=== PATIENT | female | born 1995 | race Caucasian/White ===

== ENCOUNTER 2016-07-17 05:34 | Day surgery (SDC) | payer OTHER ==
[2016-07-17] VITALS (8 sets, daily range): BP systolic 98–117; BP diastolic 52–71; PULSE 67–80; RESP 14–21; O2SAT 96–99
[~2016-07-17] VITALS: Ht 157.5 cm; Wt 62.1 kg
[~2016-07-17 05:34] MED LIST: DOCO200C5 PO
[2016-07-17] MEDS ORDERED: Lidocaine PF 1% 30 mL Inj ONE (05:35)
[2016-07-17] MEDS ORDERED: Propofol 10,000 mCg/mL 20 mL Inj ONE (05:35)
[2016-07-17] MEDS ORDERED: Ondansetron 2 mg/mL 2 mL Inj ONE (05:35)
[2016-07-17] MEDS ORDERED: Dexamethasone 4 mg/mL Inj ONE (05:35)
[2016-07-17] MEDS: Lactated Ringer's 1,000 ML IV SCH ×3 (05:49→07:52)
[2016-07-17] MEDS ORDERED: CeFAZolin Inj 2 GM in IV Premix 1 EACH IV SCH (06:00)
[2016-07-17] MEDS ORDERED: Lidocaine 1%-Epi 1:100,000 20 mL Inj INFILTRATE ONE (07:05)
[2016-07-17] MEDS ORDERED: Bupivacaine-MPF 0.25% 30 mL Inj INFILTRATE ONE (07:07)
--- NOTE | 2016-07-17 07:19 | PCM.HPANE ---
Patient Data Date of Service: July 17, 2016 Surgeon Admitting Provider: Attending Provider:Ted Banerjee MD Primary Care Physician:Dinora Kirby Other Provider:Florence Maguire Anesthesia Reason for Visit Congenital Nevus Left Leg Ht/WT & BMI Height (Feet): 5 Height (Inches): 2 Weight (Kilograms): 62.1 Body Mass Index 25.00 Allergies Coded Allergies: No Known Allergies (Unverified , 11/17/15) Past Anesthesia History Anesthesia History: Denies:: Anesthesia Reactions Diabetes History Hx Diabetes?: No Medications Home Meds Incl Beta Nanette: No Reported Medications Docosahexanoic Acid ( Dha)200 Mg [id number] Mg PO DAILY 07/14/16 Discontinued Reported Medications [valtrex] No Conflict Check 11/17/15 Discontinued Scripts Ibuprofen 600 Mg [id number] Mg PO QID PRN For Pain #30 TABLET Ref 1 Prov:Gustabo Goodrich MD 11/20/15 Ibuprofen 800 Mg [id number] Mg PO Q6H PRN For Pain #30 TABLET Ref 1 Prov:Gustabo Goodrich MD 11/20/15 Ferrous Sulfate 325 Mg [id number] Mg PO DAILY 90 Days Ref 1 Prov:Gustabo Goodrich MD 11/20/15 Docusate Sodium (Colace)100 Mg [id number] Mg PO BID #30 CAPSULE Ref 1 Prov:Gustabo Goodrich MD 11/20/15 oxyCODONE-Acetaminophen 5-325 mg 1 Each Tablet1-2 Tab PO Q4H PRN For Pain #30 TABLET Prov:Gustabo Goodrich MD 11/20/15 History History of ENT Problems?: No HEENT History: Denies:: Abnormal Airway TMJ Denture Type: None Teeth Condition: Within Normal Limits Hx of Heart Problems?: Yes Cardiovascular History: Positive for:: Irregular Heartbeat (prior hx of tachycardia post exercise, neg w/u 2010) Denies:: AICD Chest Pain Heart Murmur Pacemaker Peripheral Vascular Hx of Respiratory Problem?: No Respiratory History: Denies:: Asthma Hx Neurologic Problems?: No Neurological History: Denies:: CVA Hx of GI Problems?: No Gastrointestinal History: Denies:: Gastroesphageal Reflux Hx of Problems?: No Female Hx: Denies:: Currently Problems with Breasts? Skin History: Positive for:: History Skin Disorders? 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) Hx Musculoskeletal Problems?: No Hx of Psycho/Social Problems?: No Hx Surgeries?: Yes (c section, wisdom teeth) Hx Any Other Health Problems?: No Other History: Denies:: Cancer Thyroid Disease Hx Diabetes: No Hx Alcohol Use: NoHx Substance Use: No Smoking Status: Never Smoker Stop/Bang S-Snoring: Do You Snore Loudly: No T-Tired: feel tired, fatigued: No O-Obsered: Observed not breath: No P-Blood Pressure: treated: No B- Body Mass Index > 35 kg/m2: No A- Age over 50: No N- Neck Large Circumference: No G- Gender Male: No DILCIA Total Score: 0 DILCIA Risk Assessment: Low Risk, <3 Yes Risk Assessment Category Category 1A: Patient has history of documented sleep apnea, and HAS NOT received any narcotic, sedative or anesthesia administration during this stay. Category 1B: Patient has history of documented sleep apnea, and HAS received any narcotic , sedative or anesthesia administration during this stay Category 2: Patient has SUSPECTED Obstructive Sleep Apnea, and HAS received any narcotic , sedative or anesthesia administration during this stay. Category 3: Patient has SUSPECTED Obstructive Sleep Apnea and HAS NOT received narcotic, sedative or anesthesia administration during this stay. Category 4: Outpatient in Procedural Areas with known sleep apnea or who screen positive for High Risk via the STOP/BANG questionnaire. Exam Exam Vital Signs Vital Signs Date Time Temp Pulse Resp B/P Pulse Ox O2 Delivery O2 Flow Rate FiO2 07/17/16 05:56 36.1 73 16 117/69 98 Room Air General Appearance: Alert, Oriented X3, Cooperative, No Acute Distress HEENT/AIRWAY: MP 2, Neck Movement (FROM TMD 3 FB) Lungs: Clear to Auscultation, Normal Air Movement Heart: Exam Unremarkable, Regular Rate/Rhythm, No Murmurs/Rubs/Gallops Meds/Labs/Diagnostics Admission Meds Current Medications Lactated Ringer's (Lr) 1,000 ml @ 120 mls/hr Q8H20M IV Last administered on t 05:49; Start 07/17/16 at 05:00; Stop 07/17/16 at 13:19 Lidocaine/ Epinephrine (Xylocaine 1%-Epinephrine 1:100,000 Inj) 20 ml STK-MED ONCE INFILTRATE Last administered on 07/17/16 07:05; Start 07/17/16 at 07:05; Stop 07/17/16 at 07:08; Status DC Bupivacaine HCl (Sensorcaine-MPF 0.25% Inj) 30 ml STK-MED ONCE INFILTRATE Last administered on 07/17/16 07:07; Start 07/17/16 at 07:07; Stop 07/17/16 at 07:08 ; Status DC Plan Impression Patient chart reviewed, patient interviewed and anesthestic plan with risks, benefits, and alternatives discussed, and informed consent obtained. ASA Physical Status: ASA1 Normal Healthy Anesthetic Plan: GA Bene/Risks/Altern/Consents: Yes HP Complete Prior to Induction: Yes Justin Hubbard MD July 17, 2016 07:19
[2016-07-17] MEDS ORDERED: Lactated Ringer's 500 ML IV PRN (07:39)
[2016-07-17] MEDS ORDERED: Lactated Ringer's 1,000 ML IV SCH (07:39)
[2016-07-17] MEDS ORDERED: fentaNYL-PF 50 mCg/mL 2 mL Inj IVPUSH PRN (07:40)
[2016-07-17] MEDS ORDERED: EPHEDrine Sulfate 50 mg/mL Inj IM PRN (07:40)
[2016-07-17] MEDS ORDERED: Labetalol 5 mg/mL 4 mL Inj IV PRN (07:40)
[2016-07-17] MEDS ORDERED: Atropine 0.4 mg/mL Inj IVPUSH PRN (07:40)
[2016-07-17] MEDS ORDERED: Ondansetron 2 mg/mL 2 mL Inj IVPUSH PRN (07:40)
[2016-07-17] MEDS ORDERED: hydrOXYzine Inj 50 MG/1 mL SDV IM PRN (07:40)
[2016-07-17] MEDS ORDERED: HYDROmorphone 1 mg/mL Inj IVPUSH PRN (07:40)
[2016-07-17] MEDS ORDERED: hydrALAZINE 20 mg/mL Inj IVPUSH PRN (07:40)
[2016-07-17] MEDS ORDERED: Phenylephrine 10,000 mCg/mL Inj IVPUSH PRN (07:40)
[2016-07-17] MEDS ORDERED: EPHEDrine Sulfate 50 mg/mL Inj IVPUSH PRN (07:40)
[2016-07-17] MEDS ORDERED: HYDROcodone-APAP 5-325 mg Tablet PO PRN (08:20)
--- NOTE | 2016-07-17 10:18 | PCM.ANEP1 ---
Post Anesthesia Phase 1 PACU Phase 1 Assessment Date of Service: July 17, 2016 Vital Signs Vital Signs Date Time Temp Pulse Resp B/P Pulse Ox O2 Delivery O2 Flow Rate FiO2 07/17/16 08:50 74 16 106/65 99 Room Air 07/17/16 08:30 74 16 115/71 97 Room Air 07/17/16 08:20 78 15 101/68 99 Room Air 07/17/16 08:15 36.2 80 21 98/70 99 Room Air 07/17/16 08:10 67 17 107/66 96 Room Air 07/17/16 08:05 69 15 100/57 96 Room Air 07/17/16 08:00 36.0 70 14 103/52 98 Room Air 07/17/16 05:56 36.1 73 16 117/69 98 Room Air Anesthetic Administered: GA Level of Alertness: Awake, talking WRAY's with Equal Strength: Yes Pain: No Nausea or Vomiting: No Cardiovascular Function and Hy: Yes Oxygen Delivery: Room Air Lungs: Clear to Auscultation, Normal Air Movement Dermatome Level: Full Sensation Complications: No Follow up Care: No Justin Hubbard MD July 17, 2016 10:18
--- NOTE | 2016-07-18 15:05 | PATH ---
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 NEVUS CELLS EXTEND TO THE PERIPHERAL EXCISIONAL MARGINS, INCLUDING THE TIPS. ICD10 CODE D22.72 GROSS DESCRIPTION: The specimen is received in one formalin filled container labeled with the patient's name, sublabeled "left leg" and consists of a england-guzman ellipse of skin and tissue which measures 1.8 x 0.9 x 0.8 CM. The epidermal surface appears slightly raised. The surgical margin is inked blue. The tips are submitted in cassette A. The remaining sample is serially sectioned into 4 pieces and entirely submitted in cassette B. 07/17/2016 DAC MICRO DESCRIPTION: See diagnosis. ICD-9 CODES: CPT CODES: 1: 44069 Electronically Signed Out Jaciel Thomas MD [facility] [address], [place] [address] Technical component performed at [facility], [facility] [address], [place], [address]
--- NOTE | 2016-07-21 21:54 | OP ---
[address] [address] OPERATIVE REPORT PATIENT: NATALIE EDGE : 1995 MR#: [id number] ADMIT: 07/17/2016 JOB ID: [id number] DATE OF SURGERY: 07/17/2016 PREOPERATIVE DIAGNOSIS(ES): Left leg pigmented lesion. POSTOPERATIVE DIAGNOSIS(ES): Left leg pigmented lesion, likely a nevus. PROCEDURE: 1. Excision of left leg pigmented lesion. Maximal length excised 3 cm (stage 1 of a staged excision of left leg nevus). 2. Layered closure of left leg defect. Total length of layered closure 3 cm. SURGEON: Ted Banerjee MD GUEST RELATIONS OFFICER: None. ANESTHESIA: General anesthesia. COMPLICATIONS: None apparent. SPECIMEN: Left leg pigmented lesion to Pathology. INDICATIONS FOR PROCEDURE: This is a 20-year-old female patient with a left leg pigmented lesion that has been present since . Dermatology is concerned about lifetime risk of malignant transformation. At this point, excision is indicated. Due to the size and the location of the lesion, a staged excision is indicated to minimize the risk of resultant deformity. PROCEDURES AND FINDINGS: The patient was identified in the preoperative area and surgical site was marked. The patient was then taken back to the operating room and placed supine on the operating table. Appropriate time-outs were taken. General anesthesia was induced smoothly. The patient was then prepped and draped in the usual sterile manner. It was noted that patient has a pigmented lesion that measures approximately 3 cm in length and 2 cm in width in the left pretibial area just lateral to the midline of the leg. An ellipse was then designed that is 3 cm long and approximately 1 cm wide. At the mid axis of this lesion, incision was then made with a #10 blade down into the underlying subcutaneous tissue. The ellipse was then excised with a small cuff of underlying adipose tissue. The defect was then reapproximated first with a layer of 3-0 Monocryl deep dermal suture, followed by 3-0 nylon simple running suture. Total length of layered closure was 3 cm. Local anesthesia was then infiltrated into this area consisting of 0.25% Marcaine with epinephrine for postoperative pain control. The patient tolerated the procedure well. Needle count, sponge count, and instrument counts were correct at the end of the procedure. The patient was extubated and transported to recovery in stable condition.
== END 2016-07-17 23:59 | disposition home or self-care (01) ==
LOC: SAS 05:34
PROVIDERS: ATTEND Plastic Surgery
DX: Q82.5 Congenital non-neoplastic nevus (principal)
CPT/HCPCS: 11403; 12032; J0690; J1100; J1885; J2405; J7120